=== PATIENT | male | born 1965 | race Hispanic/Latino ===

== ENCOUNTER 2017-01-10 04:06 | Emergency (ER) | payer OTHER ==
[2017-01-10 04:06] VITALS: BMI 27.0
[2017-01-10 04:28] VITALS: RESP 18; TEMP 97.4; O2SAT 100
--- NOTE | 2017-01-10 04:29 | ED PDOC ---
Arrival/HPI - General Chief Complaint: Dizziness/Lightheaded Time Seen by Provider: 01/10/17 04:23 Historian: Patient - History of Present Illness Narrative History of Present Illness (Text): 01/10/17 04:30 Alberto Horner is a 51 year old male, with a history of hypertension, presents to the emergency department complaining of diaphoresis, weakness and dizziness. Patient was prepping for a colonoscopy which is scheduled for later today morning and states he has not eaten anything for past day. Patient's states that he was pale when he went to bed and began sweating profusely in the middle of the night. , GI doctor, advised the patient to present to emergency department immediately for further evaluation. Denies any fever, chills, headache, dizziness, nausea, vomiting, diarrhea, urinary symptoms, or any other complaints at this time. Time/Duration: 1/2 hour Symptom Onset: Gradual Severity Level: Mild Activities at Onset: Light Context: Home Past Medical History - Provider Review Nursing Documentation Reviewed: Yes - Cardiac Hx Hypertension: Yes Hx Pacemaker: No - Pulmonary Hx Respiratory Disorders: No - Neurological Hx Neurological Disorder: No Hx Paralysis: No - HEENT Hx HEENT Disorder: No - Renal Hx Renal Disorder: No - Endocrine/Metabolic Hx Endocrine Disorders: No - Hematological/Oncological Hx Blood Disorders: No Hx Blood Transfusions: No - Integumentary Hx Dermatological Disorder: No - Musculoskeletal/Rheumatological Hx Musculoskeletal Disorders: No - Gastrointestinal Hx Gastrointestinal Disorders: No - Genitourinary/Gynecological Hx Genitourinary Disorders: No - Psychiatric Hx Psychophysiologic Disorder: No Hx Substance Use: No - Surgical History Other/Comment: vasectomy - Anesthesia Hx Anesthesia Reactions: No Hx Malignant Hyperthermia: No Family/Social History - Physician Review Nursing Documentation Reviewed: Yes Family/Social History: No Known Family HX Smoking Status: Never Smoked Hx Alcohol Use: Yes (SOCIAL) Frequency of alcohol use: Socially Hx Substance Use: No Allergies/Home Meds Allergies/Adverse Reactions: Allergies SEASONAL Allergy (Uncoded 01/10/17 04:22) CONGESTION Home Medications: Home Meds Medication Instructions Recorded Confirmed Enalapril Maleate [Vasotec] 20 mg PO DAILY 01/06/17 01/10/17 Review of Systems - Physician Review All systems were reviewed & negative as marked: Yes - Review of Systems Constitutional: Fatigue. absent: Fevers Respiratory: Normal. absent: SOB, Cough, Sputum Cardiovascular: absent: Chest Pain Gastrointestinal: Normal. absent: Abdominal Pain, Diarrhea, Nausea, Vomiting Neurological: Dizziness. absent: Headache Endocrine: Diaphoresis Psychiatric: Normal Physical Exam Vital Signs Reviewed: Yes Vital Signs Temp Pulse Resp BP Pulse Ox 01/10/17 08:06 89 128/88 100 01/10/17 05:23 82 18 143/84 100 01/10/17 04:27 97.4 F L 81 18 144/97 H 100 Temperature: Afebrile Blood Pressure: Hypertensive Pulse: Regular Respiratory Rate: Normal Appearance: Positive for: Well-Appearing, Non-Toxic, Comfortable Pain Distress: None Mental Status: Positive for: Alert and Oriented X 3 - Systems Exam Head: Present: Atraumatic, Normocephalic Pupils: Present: PERRL Conjunctiva: Present: Normal Mouth: Present: Moist Mucous Membranes Neck: Present: Normal Range of Motion Respiratory/Chest: Present: Clear to Auscultation, Good Air Exchange. No: Respiratory Distress, Accessory Muscle Use Cardiovascular: Present: Regular Rate and Rhythm, Normal S1, S2. No: Murmurs Abdomen: Present: Normal Bowel Sounds. No: Tenderness, Distention, Peritoneal Signs Back: Present: Normal Inspection Upper Extremity: Present: Normal Inspection. No: Cyanosis, Edema Lower Extremity: Present: Normal Inspection. No: Edema Neurological: Present: GCS=15, CN II-XII Intact, Speech Normal Skin: Present: Warm, Dry, Normal Color. No: Rashes Psychiatric: Present: Alert, Oriented x 3, Normal Insight, Normal Concentration Medical Decision Making ED Course and Treatment: 01/10/17 04:36 Impression: A 51 year old male who presents to the emergency department complaining of dizziness, weakness and diaphoresis. Plan: -- EKG -- labs, cardiac enzymes -- IV fluids -- Urinalysis -- Reassess and disposition Progress Notes: - Lab Interpretations Lab Results: 01/10/17 04:30 01/10/17 04:30 Lab Results 01/10/17 04:30: Sodium 141, Potassium 3.9, Chloride 99, Carbon Dioxide 25, Anion Gap 21 H, BUN 13, Creatinine 1.0, Est GFR ( Amer) > 60, Est GFR ( Non-Af Amer) > 60, Random Glucose 122 H, Calcium 10.5, Total Bilirubin 1.3, AST 44, ALT 48, Alkaline Phosphatase 63, Lactate Dehydrogenase 531, Total Creatine Kinase 175, Troponin I < 0.01, Total Protein 9.3 H, Albumin 5.5 H, Globulin 3.8 , Albumin/Globulin Ratio 1.4, Amylase 78, Lipase 39 01/10/17 04:30: PT 11.4, INR 1.06, APTT 26.7 01/10/17 04:30: WBC 7.2, RBC 5.39, Hgb 17.7, Hct 48.1, MCV 89.2, MCH 32.8, MCHC 36.8, RDW 12.4, Plt Count 219, MPV 10.6, Gran % 76.8 H, Lymph % (Auto) 16.0 L, Cherry % (Auto) 6.1 H, Eos % (Auto) 1.0 L, Baso % (Auto) 0.1, Gran # 5.52, Lymph # 1.2, Cherry # 0.4, Eos # 0.1, Baso # 0.01 - Medication Orders Current Medication Orders: Discontinued Medications Sodium Chloride (Sodium Chloride 0.9%) 1,000 mls @ 1,000 mls/hr IV .Q1H STA Stop: 01/10/17 05:29 Last Admin: 01/10/17 05:18 Dose: 1,000 mls/hr - Scribe Statement The provider has reviewed the documentation as recorded by the Farhad Pryor Provider Attestation: Provider Scribe Attestation: All medical record entries made by the [employer]rib[employer] were at my direction and personally dictated by me. I have reviewed the chart and agree that the record accurately reflects my personal performance of the history, physical exam, medical decision making, and the department course for this patient. I have also personally directed, reviewed, and agree with the discharge instructions and disposition. Disposition/Present on Arrival - Present on Arrival Any Indicators Present on Arrival: No History of DVT/PE: No History of Uncontrolled Diabetes: No Urinary Catheter: No History of Decub. Ulcer: No History Surgical Site Infection Following: None - Disposition Have Diagnosis and Disposition been Completed?: Yes Diagnosis: Weakness Disposition: HOME/ ROUTINE Disposition Time: 07:00 Condition: GOOD Discharge Instructions (ExitCare): Weakness (ED) Additional Instructions: follow up with dr saleh this am Forms: [facility] (Kazakh)
[2017-01-10] MEDS: Sodium Chloride 0.9% 1,000 ML IV STA ×2 (04:42→05:18)
[2017-01-10 04:46] LABS: BASO # 0.01 K/mm3 (0.0-2.0); BASO % 0.1 % (0.0-3.0); EOS # 0.1 (0.0-0.7); GRAN # 5.52 (1.4-6.5); GRAN % 76.8 % (50.0-68.0); HEMOGLOBIN 17.7 g/dL (14.0-18.0); LYMPH # 1.2 (1.2-3.4); MEAN CELL VOLUME 89.2 fl (80.0-105.0); MEAN CORPUSCULAR HEMOGLOBIN 32.8 pg (25.0-35.0); MEAN CORPUSCULAR HGB CONC 36.8 g/dl (31.0-37.0); MEAN PLATELET VOLUME 10.6 fl (7.0-11.0); MONO # 0.4 (0.1-0.6); MONO % 6.1 % (1.0-6.0); PLATELET COUNT 219 10^3/uL (120.0-450.0); RBC 5.39 10^6/uL (3.5-6.1); RED CELL DISTRIBUTION WIDTH 12.4 % (11.5-14.5); WHITE BLOOD COUNT 7.2 10^3/ul (4.5-11.0)
[2017-01-10 04:55] LABS: INR 1.06 (0.93-1.08); PARTIAL THROMBOPLASTIN TIME 26.7 Seconds (23.7-30.8); PROTHROMBIN TIME 11.4 Seconds (9.9-11.8)
[2017-01-10 04:58] LABS: ALBUMIN 5.5 g/dL (3.0-4.8); ALT/SGPT 48 U/L (7-56); AMYLASE 78 U/L (35-125); AST/SGOT 44 U/L (15-59); BLOOD UREA NITROGEN 13 mg/dL (7-21); CALCIUM 10.5 mg/dL (8.4-10.5); GFR AFRICAN-AMERICAN > 60; GFR NON-AFRICAN AMERICAN > 60; LIPASE 39 U/L (23-300)
[2017-01-10 05:16] LABS: ALB/GLOB RATIO 1.4 (1.1-1.8); TROPONIN I < 0.01 ng/mL
[2017-01-10 08:06] VITALS: BP 128/88; PULSE 89
--- NOTE | 2017-01-10 19:38 | CARD ---
APPROVED REPORT EKG Measurement Heart [id number] <Conclusion> Normal sinus rhythm Incomplete right bundle branch block Prolonged QT Abnormal ECG
== END 2017-01-10 08:05 | disposition home or self-care (01) ==
LOC: ED 04:06
DX: R53.1 Weakness (principal)
CPT/HCPCS: 80053; 82150; 82550; 83615; 83690; 84484; 85025; 85610; 85730; 93005; 96360; 99284; J7040

== ENCOUNTER 2017-01-10 08:09 | Day surgery (SDC) | payer OTHER ==
[2017-01-02 09:28] VITALS: BMI 27.0
[2017-01-10] MEDS ORDERED: Propofol 10 mg/ml Inj (20 ML) ONE (09:57)
[2017-01-10] MEDS ORDERED: Sodium Chloride 0.9% 1,000 ML IV SCH (10:30)
[2017-01-10] MEDS ORDERED: Sodium Chloride 0.9% 500 ML IV STA (10:51)
[2017-01-10 13:15] VITALS: BP 126/77; PULSE 69; RESP 16; TEMP 98; O2SAT 99
== END 2017-01-10 11:50 | disposition home or self-care (01) ==
LOC: ENDO 08:09
PROVIDERS: ATTEND Internal Medicine Gastroenterology
DX: Z12.11 Encounter for screening for malignant neoplasm of colon (principal); K64.8 Other hemorrhoids; K64.4 Residual hemorrhoidal skin tags
CPT/HCPCS: 45378; J2704; J7040 ×3